=== PATIENT | female | born 1950 | race Caucasian/White ===

== ENCOUNTER → 2018-02-19 | Outpatient (CLI) | payer MEDICARE, OTHER | LOC: MC.RAD 08:26 | DX: Z12.31 Encounter for screening mammogram for malignant neoplasm of breast (principal) ==

== ENCOUNTER → 2019-03-31 | Outpatient (CLI) | payer OTHER | LOC: MC.RAD 02-23 11:15 | DX: Z12.31 Encounter for screening mammogram for malignant neoplasm of breast (principal) ==